=== PATIENT | male | born 1955 | race Caucasian/White ===

== ENCOUNTER 2021-01-07 13:56 | Emergency (ER) | payer OTHER ==
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
--- NOTE | 2021-01-07 14:55 | EDPHYS ---
Physician Documentation [facility] Name: Allan Sandoval Age: 65 yrs Sex: Male : 1955 Arrival Date: 01/07/2021 Time: 14:01 Bed 5 Private MD: ED Physician Jeff Brown HPI: 01/07 15:05 This 65 yrs old Male presents to ER via Ambulatory with complaints of Wound jr8 Infection. 15:05 This is a 65-year-old male patient that came in for further evaluation of a continued jr8 wound to the left lower extremity. Patient stated that he has now completed 4 rounds of antibiotics but still continues to have a wound. At this point has no pain and has had markedly decreased erythema. Denies fevers or any other changes at this point. Stated that his lower extremity does still continue to be swollen but otherwise no other acute change noted.. Historical: - Allergies: 14:07 No Known Allergies; tw5 - Home Meds: 14:07 None [Active]; tw5 - PMHx: 14:07 None; tw5 - PSHx: 14:07 None; tw5 - Immunization history:: Client reports receiving the 2nd dose of the Covid vaccine. - Social history:: Smoking status: Patient/guardian denies using tobacco, the patient reports quitting approximately 30 years ago. ROS: 15:05 Eyes: Negative for injury, pain, redness, and discharge, ENT: Negative for injury, jr8 pain, and discharge, Neck: Negative for injury, pain, and swelling, Cardiovascular: Negative for chest pain, palpitations, and edema, Respiratory: Negative for shortness of breath, cough, wheezing, and pleuritic chest pain, Abdomen/GI: Negative for abdominal pain, nausea, vomiting, diarrhea, and constipation, Back: Negative for injury and pain, MS/Extremity: Negative for injury and deformity, Neuro: Negative for headache, weakness, numbness, tingling, and seizure. 15:05 Skin: Positive for Open wound left lower leg. Exam: 15:05 Constitutional: This is a well developed, well nourished patient who is awake, alert, jr8 and in no acute distress. Cardiovascular: Regular rate and rhythm with a normal S1 and S2. No gallops, murmurs, or rubs. Normal PMI, no JVD. No pulse deficits. Respiratory: Lungs have equal breath sounds bilaterally, clear to auscultation and percussion. No rales, rhonchi or wheezes noted. No increased work of breathing, no retractions or nasal flaring. MS/ Extremity: Pulses equal, no cyanosis. Neurovascular intact. Full, normal range of motion. Neuro: Awake and alert, GCS 15, oriented to person, place, time, and situation. Cranial nerves II-XII grossly intact. Motor strength 5/5 in all extremities. Sensory grossly intact. 15:05 Skin: Has approximately 1.5 cm open wound to the left lower extremity with mild surrounding erythema. No warmth to touch and no pain to touch. Mild serous drainage noted but without any purulence.. Vital Signs: 14:04 Resp 16; Weight 72.57 kg; Height 5 ft. 11 in. (180.34 cm); Pain 0/10; tw5 14:07 BP 138 / 92; Pulse 79; Resp 16; Temp 98.6; Pulse Ox 99% on R/A; Pain 0/10; tw5 14:04 Body Mass Index 22.32 (72.57 kg, 180.34 cm) tw5 MDM: 14:24 Patient medically screened. [facility] 14:49 Data reviewed: vital signs, nurses notes, and as a result, I will discharge patient. jr8 Data interpreted: Pulse oximetry: on room air is 99 %. Interpretation: normal. Counseling: I had a detailed discussion with the patient and/or guardian regarding: the historical points, exam findings, and any diagnostic results supporting the discharge/admit diagnosis, the need for outpatient follow up, a family practitioner, to return to the emergency department if symptoms worsen or persist or if there are any questions or concerns that arise at home. ED course: Discussed with patient that he has been on several antibiotics at this point. That the extremity has only mild local erythema around the wound but no other deep redness, warmth, or pain at this point. Unlikely to be infectious at this point. Discussed with him that I would recommend wound care through our wound therapy center for further management of this. That is swelling in the leg is probably related to some mild lymphedema secondary from his original infection. Patient is going to follow-up with his PCP and schedule for wound management at this time. Knows to come back if anything were to worsening point.. Administered Medications: No medications were administered Disposition: 16:31 Co-signature as Attending Physician, Jeff Brown MD I agree with the assessment and rn plan of care. Attestation: The patient's history, exam findings, diagnostics, and a summary of any interventions or procedures was reviewed in detail with Claude VEE. Disposition Summary: 01/07/21 14:54 Discharge Ordered Location: Home jr8 Problem: new jr8 Symptoms: have improved jr8 Condition: Stable jr8 Diagnosis - Unspecified open wound, left lower leg jr8 Followup: jr8 - With: Daren Nickerson MD - When: 1 - 2 days - Reason: Wound Recheck, Recheck today's complaints, Continuance of care, Re-evaluation by your physician Discharge Instructions: - Discharge Summary Sheet jr8 - Wound Care, Adult jr8 Forms: - Medication Reconciliation Form jr8 - Thank You Letter jr8 - Antibiotic Education jr8 - Prescription Opioid Use jr8 Signatures: Jeff Brown MD MD rn Roszak, Josh, PA PA jr8 Priya Anne tw5
[2021-01-07 17:57] VITALS: BP 138/92; TEMP 98.6; O2SAT 99
== END 2021-01-07 15:08 | disposition home or self-care (01) ==
LOC: ER 13:56
DX: S81.802A Unspecified open wound, left lower leg, initial encounter (principal)
CPT/HCPCS: 99281